=== PATIENT | male | born 1990 | race Caucasian/White ===

== ENCOUNTER 2020-01-08 19:26 | Emergency (ER) | payer MEDICAID ==
[~2020-01-08] VITALS: Ht 162.6 cm; Wt 68.2 kg
[2020-01-08 19:29] VITALS: BP 119/62
[2020-01-08] MEDS ORDERED: penicillin G benzathine 1.2 million unit/2ml syringe IM ONE (19:55)
[2020-01-08] MEDS ORDERED: azithromycin 250mg tablet PO ONE (19:55)
[2020-01-08] MEDS ORDERED: CefTRIAXone 250MG IM Kit w/LIDOcaine IM ONE (19:55)
[2020-01-08 20:17] LABS: CLARITY,URINE CLOUDY (Clear); COLOR,URINE YELLOW (Yellow); GLUCOSE, URINE NEGATIVE (Neg); KETONES,URINE TRACE mg/dl (Neg); LEUKOCYTE ESTERASE ,URINE LARGE (Neg); NITRITES, URINE NEGATIVE (Neg); OCCULT BLOOD,URINE SMALL (Neg); PROTEIN,URINE 30 mg/dl (Neg); UROBILINOGEN,URINE 0.2 E.U/dL (0.2-1.0)
[2020-01-08 20:19] LABS: BACTERIA,URINE FEW /HPF (Neg); SQUAMOUS EPITHELIAL CELL,UR FEW /LPF (FEW); UA COLLECTION TYPE CLN CATCH MIDSTREAM; WBC CLUMPS,URINE FEW /HPF (NEGATIVE); WBC,URINE TNTC /HPF (0-4)
[2020-01-08] MEDS ORDERED: DOXY-1 PO (20:46)
== END 2020-01-08 21:07 | disposition home or self-care (01) ==
LOC: ER 19:26
DX: N39.0 Urinary tract infection, site not specified (principal); R31.9 Hematuria, unspecified; F17.200 Nicotine dependence, unspecified, uncomplicated; F15.90 Other stimulant use, unspecified, uncomplicated; Z79.2 Long term (current) use of antibiotics; Z72.89 Other problems related to lifestyle
CPT/HCPCS: 36415; 81001; 87088; 87252; 87491; 87591; 96372; 99284; J0561; J0696

== ENCOUNTER 2020-10-20 22:19 | Emergency (ER) | payer MEDICAID ==
[~2020-10-20] VITALS: Ht 162.6 cm; Wt 72.7 kg
[2020-10-20] MEDS ORDERED: aspirin 81mg tab.chew PO ONE (23:00)
[2020-10-20] MEDS ORDERED: ondansetron/PF 4mg/2ml inj IV ONE (23:25)
[2020-10-20 23:35] LABS: BASOPHILS # (AUTO) 0.1 X10'3 (0-0.2); BASOPHILS % (AUTO) 1.4 % (0-1); EOSINOPHILS # (AUTO) 0.6 X10'3 (0-0.9); EOSINOPHILS % (AUTO) 6.5 % (0-6); HEMATOCRIT 44.5 % (42.0-52.0); HEMOGLOBIN 14.8 g/dl (14.0-17.9); LYMPHOCYTES # (AUTO) 1.8 X10'3 (1.1-4.8); MEAN CORPUSCULAR HEMOGLOBIN 30.2 PG (27.0-31.0); MEAN CORPUSCULAR HGB CONC 33.3 g/dL (33.0-36.5); MEAN CORPUSCULAR VOLUME 90.7 FL (78-98); MEAN PLATELET VOLUME 6.8 FL (7.4-10.4); MONOCYTES # (AUTO) 0.4 X10'3 (0-0.9); NEUTROPHILS # (AUTO) 6.8 X10'3 (1.8-7.7); NEUTROPHILS % (AUTO) 70.1 % (42-75); PLATELET COUNT 320 X10'3 (140-440); RED BLOOD COUNT 4.91 X10'6 (4.70-6.10); RED CELL DISTRIBUTION WIDTH 14.5 % (11.5-14.5); WHITE BLOOD COUNT 9.7 X10'3 (4.5-11.0)
--- NOTE | 2020-10-20 23:40 | NUR ---
AWARE OF PT BRADYING DOWN INTO 38HR
[2020-10-20 23:41] LABS: ALANINE AMINOTRANSFERASE 14 U/L (12-78); ALBUMIN 3.7 G/DL (3.4-5.0); ALBUMIN/GLOBULIN RATIO 1.2 (1.1-1.5); ALKALINE PHOSPHATASE 55 IU/L (46-116); ANION GAP 4 (8-16); ASPARTATE AMINO TRANSFERASE 4 U/L (10-37); BILIRUBIN,TOTAL 0.2 MG/DL (0.1-1.0); BLOOD UREA NITROGEN 12 MG/DL (7-18); CALCIUM 9.1 MG/DL (8.5-10.1); CHLORIDE 109 MMOL/L (99-107); CREATININE 0.92 MG/DL (0.60-1.10); GLUCOSE 110 MG/DL (70-104); POTASSIUM 3.9 MMOL/L (3.5-5.1); SODIUM 146 MMOL/L (135-145); TOTAL CARBON DIOXIDE 32.7 MMOL/L (24-32); TOTAL PROTEIN 6.9 G/DL (6.4-8.2); eGFR > 90 ML/MIN
[2020-10-20] MEDS ORDERED: ketorolac trometh. 30mg/ml inj. IV ONE (23:45)
[2020-10-20] MEDS ORDERED: LORazepam 2 mg/ml vial IV ONE (23:45)
[2020-10-21 00:02] LABS: TOTAL CELLS COUNTED 100
[2020-10-21 00:03] LABS: PLATELET ESTIMATE NORMAL
[2020-10-21 00:05] LABS: LIPASE 139 U/L (73-393)
[2020-10-21 00:10] LABS: COLOR,URINE YELLOW (Yellow); GLUCOSE, URINE NEGATIVE (Neg); KETONES,URINE NEGATIVE (Neg); LEUKOCYTE ESTERASE ,URINE TRACE (Neg); NITRITES, URINE NEGATIVE (Neg); OCCULT BLOOD,URINE TRACE-INTACT (Neg); PROTEIN,URINE NEGATIVE (Neg); UROBILINOGEN,URINE 0.2 E.U/dL (0.2-1.0)
[2020-10-21 00:11] LABS: CLARITY,URINE SLIGHTLY CLOUDY (Clear); UA COLLECTION TYPE VOIDED
[2020-10-21 00:12] LABS: ETHANOL < 0.010 GM/DL (0.0-0.010)
[2020-10-21 00:17] LABS: URINE AMPHETAMINE SCREEN POSITIVE (Neg); URINE BARBITUATE SCREEN NEGATIVE (Neg); URINE BENZODIAZEPINES SCREEN NEGATIVE (Neg); URINE CANNABINOID SCREEN POSITIVE (Neg); URINE COCAINE SCREEN NEGATIVE (Neg); URINE METHADONE SCREEN NEGATIVE (Neg); URINE OPIATE SCREEN NEGATIVE (Neg); URINE PHENCYCLIDINE SCREEN NEGATIVE (Neg)
[2020-10-21 00:19] LABS: BACTERIA,URINE NONE SEEN /HPF (Neg); MUCUS STRANDS NONE SEEN /LPF (Neg); RBC,URINE 0-2 /HPF (0-2); SQUAMOUS EPITHELIAL CELL,UR FEW /LPF (FEW); WBC,URINE 0-4 /HPF (0-4)
[2020-10-21] MEDS ORDERED: normal saline 1000ML IV soln IVB ONE (00:25)
--- NOTE | 2020-10-21 00:27 | NUR ---
md aware of hr in the low 40's to high 30's, 1l bolus ordered, will continue to monitor
--- NOTE | 2020-10-21 00:29 | NUR ---
when pt is woken up his hr goes to 60's, when sleeping it dropps again to the 40's, chest pain is resolved this being pts main complaint upon arrival
[2020-10-21 04:19] VITALS: BP 124/88
== END 2020-10-21 04:21 | disposition home or self-care (01) ==
LOC: ER 22:20
DX: R07.89 Other chest pain (principal); R06.02 Shortness of breath; R11.2 Nausea with vomiting, unspecified; F15.90 Other stimulant use, unspecified, uncomplicated; J45.909 Unspecified asthma, uncomplicated; F17.200 Nicotine dependence, unspecified, uncomplicated; F12.90 Cannabis use, unspecified, uncomplicated; Z72.89 Other problems related to lifestyle
CPT/HCPCS: 36415; 71045; 80053; 80305; 80320; 81001; 83690; 83880; 84484; 85007; 85025; 87088; 93005; 96361; 96374; 96375; 99285; J1885; J2060; J2405; J7030; 81003

== ENCOUNTER 2025-11-03 17:40 | Emergency (ER) | payer MEDICAID ==
[~2025-11-03] VITALS: Ht 162.6 cm; Wt 87.7 kg
[2025-11-03 17:44] VITALS: BP 136/82; PULSE 100; RESP 18; O2SAT 98
--- NOTE | 2025-11-03 19:08 | Physician Documentation ---
History of Present Illness ~ Chief Complaint: Wound Stated Complaint: WOUNDS Time Seen by MD: 18:48 Primary Medical Doctor: [facility] [id number] male returns to the ED after being treated for cellulitis last week. States he would like to have a sweat pants because his pants are not good enough for his wounds on his lower extremity. Patient is afebrile moderately tachycardic in his a current methamphetamine user. Triage indicated that the patient had not picked up his medications for his infection. He states that he did pick them up in the air at the [facility] [place] [facility] Day of Onset of Wound: Nov 03, 2025 Tetanus within 5 years?: No Medication Reconciliation Allergies: Coded Allergies: No Known Allergies (Unverified , 11/03/25) Past Medical History Past Medical History: Asthma, Extremity Fracture Past Surgical History: noncontributory Alcohol Use: Occasionally Drug Use: marijuana, methamphetamine Lives In: Home Review of Systems All Other Systems at this time: Reviewed and Negative ROS As stated above in the HPI, otherwise all systems are reviewed and negative. Physical Exam Vital Signs: Temperature: 98.0, Source: Temporal, Heart Rate: 100, Respiratory Rate: 18, BP: 136/82, Pulse Oximetry: 98, Weight: 87.700 Oxygen Flow Rate: 0 Physical Exam General: Alert, no apparent distress. Extremities: Normal range of motion, no deformity. Neurologic: Oriented x4. Psychiatric: Normal mood and affect. Skin: Full wounds on the left lower extremity in various stages of healing some have drainage, no gross erythema or circumferential swelling Progress Results/Orders Results/Orders Vital Signs 11/03/25 11/03/25 17:44 19:15 Temp 98.0 98.0 Pulse 100 Resp 18 B/P (MAP) 136/82 Pulse Ox 98 O2 Flow Rate 0 Medical Decision Making Additional information obtaine: old records Findings Patient states that he did not want to take his prescribed medication because he does not want to take pharmaceuticals. This patient does not present acutely ill and does not meet criteria for SIRS at this time. Advised the patient that he needs to take his medication if you would like his wounds to heal. He seems resistant to this notion. Differential Dx:Considerations: Include: Abscess, Cellulitis, Dressing change, Healing wound, Other Departure Disposition: 01 HOME / SELF CARE / HOMELESS Impression: Primary Impression: Cellulitis Condition: Stable Discharge Instructions: How to Change Your Wound Dressing Additional Instructions: Take your antibiotics Referrals: NO PRIMARY CARE PROVIDER (PCP) Signature Scribe Signature: los Attestation: Scribed for Herminia Collier [employer] by Herminia Cast NP . 11/03/25 23:24 HERMINIA COLLIER NP Nov 03, 2025 19:08
[2025-11-03 19:15] VITALS: TEMP 98
== END 2025-11-03 19:22 | disposition home or self-care (01) ==
LOC: ER 17:41
DX: L03.116 Cellulitis of left lower limb (principal); J45.909 Unspecified asthma, uncomplicated; F12.90 Cannabis use, unspecified, uncomplicated; F15.90 Other stimulant use, unspecified, uncomplicated
CPT/HCPCS: 99283